=== PATIENT | male | born 1990 | race Caucasian/White ===

== ENCOUNTER 2021-05-10 07:22 | Emergency (ER) | payer BC ==
[~2021-05-10] VITALS: Ht 167.6 cm; Wt 86.0 kg
--- NOTE | 2021-05-10 07:28 | PHYS DOC ---
Adult General HPI HPI Patient is a 31-year-old male who presents with dental pain that has been going on about a week, in his back right molar. States he has not been able to get into see a dentist. States he took some Tylenol and ibuprofen about 3 hours ago and has Orajel at home. Denies any recent travels, traumas, fevers, pain or tr ouble swallowing, chest pain, shortness of breath, abdominal pain, nausea, vomiting. Review of Systems Review of Systems Review of systems otherwise unremarkable except noted in HPI Physical Exam Physical Exam Constitutional: Well developed, well nourished, no acute distress, non-toxic appearance. [] HENT: Normocephalic, atraumatic, bilateral external ears normal, oropharynx moist, no oral exudates, nose normal. [] Eyes: conjunctiva normal, no discharge. [] Neck: Normal range of motion, no tenderness, supple, no stridor. [] Cardiovascular:Heart rate regular rhythm, no murmur [] Neurologic: Alert and oriented X 3, normal motor function, normal sensory function, no focal deficits noted. [] Psychologic: Affect normal, judgement normal, mood normal. [] EKG EKG [] Radiology/Procedures Radiology/Procedures [] Heart Score C/O Chest Pain: No Risk Factors: Risk Factors: DM, Current or recent (<one month) smoker, HTN, HLP, family hi story of CAD, obesity. Risk Scores: Risk Factors: DM, Current or recent (<one month) smoker, HTN, HLP, family history of CAD, obesity. Course & Med Decision Making Course & Med Decision Making Patient is a 31-year-old male who comes in with dental pain Vital signs nonconcerning. Physical exam noted above. Patient declined dental block. Already took Tylenol, ibuprofen and Orajel a few hours before coming in. Started on amoxicillin. Advised on symptom control at home. Gave contact information for emergency dentist and local free dental practitioners. Advised to call and leave messages today and try to see 1 tomorrow. Gave return precautions to the ED. Patient grateful, verbalized understanding and agreed with plan of discharge. [] Dragon Disclaimer Dragon Disclaimer This electronic medical record was generated, in whole or in part, using a voice recognition dictation system. Departure Departure: Impression: Primary Impression: Pain, dental Disposition: HOME / SELF CARE / HOMELESS Condition: GOOD Referrals: PCP,NO (PCP) TRICIA ZAMORA MD Additional Instructions: Thank you for coming into the emergency department tonight and allowing us to take care of you. Please read the attached information carefully to go over things we discussed. Please begin a Tylenol, ibuprofen, Orajel regimen as we discussed. Please take your scription medicine as needed for breakthrough pain only. It is very important you call a dentist first thing Tuesday morning, if you have a dentist please call them first thing if not you can call the dentist at the numbers provided for free dental care. Please take your antibiotics as prescribed until gone. Please come back with new or concerning symptoms as discussed. You call the emergency dentist and leave a message today at [phone]. Be prepared for them to call you first thing in the morning and try to get you in tomorrow. Scripts Amoxicillin (AMOXICILLIN) 500 Mg Capsule 1 CAP PO BID for dental infxn for 7 Days, #14 CAP Prov: MIS FRANK MD 05/10/21 MIS FRANK MD May 10, 2021 07:28
[2021-05-10 07:29] VITALS: BP 110/98
[2021-05-10] MEDS ORDERED: AMOX500C PO (07:35)
[2021-05-10] MEDS ORDERED: ACETAMINOPHEN/CODEINE 300/30MG 4TABLET STARTPACK. PO ONE (07:45)
[2021-05-10] MEDS ORDERED: AMOXICILLIN 250 MG CAPSULE PO ONE (07:45)
== END 2021-05-10 08:01 | disposition home or self-care (01) ==
LOC: ER 07:22
DX: K08.89 Other specified disorders of teeth and supporting structures (principal)
CPT/HCPCS: 99283